=== PATIENT | female | born 1985 | race Two or more races ===

== ENCOUNTER 2019-05-11 10:53 | Emergency (ER) | payer SELFPAY ==
[~2019-05-11] VITALS: Ht 172.7 cm; Wt 68.0 kg
[2019-05-11] MEDS ORDERED: KETOROLAC 60MG/2ML VIAL IM STA (12:30)
[2019-05-11 15:14] VITALS: BP 119/84
== END 2019-05-11 15:41 | disposition home or self-care (01) ==
LOC: ER 10:53
DX: M75.32 Calcific tendinitis of left shoulder (principal); M25.512 Pain in left shoulder
CPT/HCPCS: 73030; 81025; 96372; 99283; J1885